=== PATIENT | male | born 1950 | race Caucasian/White ===

== ENCOUNTER 2017-07-22 08:16 | Day surgery (SDC) | payer BC ==
[2017-07-20 14:35] VITALS: BMI 32.8
[~2017-07-22 08:16] MED LIST: LACTATED RINGERS 1,000 ML IV SCH; LIDOCAINE 1% 20 ML VIAL (10MG/ML) FOR IV START INTRADERMA PRN; MIDAZOLAM 2 MG/2 ML VIAL IV PRN; MOXIFLOXACIN HCL 0.5% DROPS 3 ML BTL OP ONE; TETRACAINE 0.5% OPHTH (PF) DROPS 4 ML BTL OP ONE; TIMOLOL 0.5% OPHTH DROPS 5 ML BTL OP ONE
[2017-07-22] MEDS: CYCLOPENTOLATE 1% OPHTH SOLN 2 ML BTL OP ONE ×3 (09:45→10:10)
[2017-07-22] MEDS: PHENYLEPHRINE 2.5% OPHTH DRP 2ML OP NR ×2 (09:48→09:54)
[2017-07-22 10:01] VITALS: TEMP 98.5
[2017-07-22] MEDS ORDERED: hydrALAZINE HCL 20 MG/ML 1 ML VIAL IV ONE (10:33)
[2017-07-22] MEDS ORDERED: METOPROLOL TARTRATE 5 MG/5 ML VIAL IVP ONE (10:55)
[2017-07-22 11:08] VITALS: BP 202/95; PULSE 73; RESP 20
== END 2017-07-22 11:45 | disposition home or self-care (01) ==
LOC: OR 08:16
PROVIDERS: ATTEND Ophthalmology
DX: H25.11 Age-related nuclear cataract, right eye (principal); Z53.09 Procedure and treatment not carried out because of other contraindication

== ENCOUNTER 2017-07-22 11:38 | Emergency (ER) | payer BC, MEDICARE ==
--- NOTE | 2017-07-22 12:25 | ED ---
General Adult HPI - General Chief complaint: Recheck/Abnormal Lab/Rx Stated complaint: HTN Time Seen by Provider: 07/22/17 11:57 Source: patient, family, Caregiver Mode of arrival: ambulatory Limitations: no limitations - History of Present Illness Initial comments: 67-year-old male presenting for evaluation of hypertension. Patient was scheduled for cataract surgery today out of the right eye. In preop prior to surgery he was noted to have significantly elevated blood pressure in the 200s systolic. Patient does not follow with a primary care physician. He is not on any antihypertensive medications. His right eye was dilated with plans for cataract surgery prior to presentation the emergency department. He was given 10 mg of IV hydralazine and 7.5 mg of Lopressor with minimal improvement in his blood pressure. He was transferred to the ER for further evaluation and treatment. Patient denies headache. He denies chest pain or shortness of breath. He denies abdominal pain. Denies any focal neurological complaints including no numbness tingling or weakness. Patient does not have a primary care physician and is not on any medication currently. - Related Data Home Medications Medication Instructions Recorded Confirmed Ascorbic Acid [Vitamin C] 500 mg PO DAILY 07/22/17 07/22/17 Calcium Carbonate/Vitamin D3 1 tab PO DAILY 07/22/17 07/22/17 [Calcium 500-Vit D3 200 Tablet] Cholecalciferol [Vitamin D3] 1,000 unit PO DAILY 07/22/17 07/22/17 Glucosam/Lopez-Msm1/C/Maximino/Bosw 1 tab PO DAILY 07/22/17 07/22/17 [Glucosamine-Chondroitin Tablet] Denver-3 Fatty Acids/Fish Oil [Fish 1 cap PO DAILY 07/22/17 07/22/17 Oil 1,000 mg Softgel] Turmeric Root Extract [Turmeric] 500 mg PO DAILY 07/22/17 07/22/17 Vitamin B Complex 1 cap PO DAILY 07/22/17 07/22/17 Previous Rx's Medication Instructions Recorded amLODIPine BESYLATE [Norvasc] 5 mg PO DAILY #30 tablet 07/22/17 Allergies Allergy/AdvReac Type Severity Reaction Status Date / Time No Known Allergies Allergy Verified 07/22/17 11:53 Review of Systems ROS Statement: Those systems with pertinent positive or pertinent negative responses have been documented in the HPI. ROS Other: All systems not noted in ROS Statement are negative. Past Medical History Past Medical History: Eye Disorder Additional Past Medical History / Comment(s): TYLER CATARACT History of Any Multi-Drug Resistant Organisms: None Reported Past Surgical History: Joint Replacement Additional Past Surgical History / Comment(s): HIP Past Anesthesia/Blood Transfusion Reactions: No Reported Reaction Past Psychological History: No Psychological Hx Reported Smoking Status: Former smoker Past Alcohol Use History: Occasional Past Drug Use History: None Reported - Past Family History Daughter(s) Family Medical History: Cancer Additional Family Medical History / Comment(s): BREAST General Exam Limitations: no limitations General appearance: alert, in no apparent distress Head exam: Present: atraumatic, normocephalic Eye exam: Present: normal appearance, other (Left eye 3 mm and reactive, right eye is 7 mm and sluggish.) ENT exam: Present: normal exam Neck exam: Present: normal inspection. Absent: tenderness, meningismus Respiratory exam: Present: normal lung sounds bilaterally. Absent: respiratory distress, wheezes Cardiovascular Exam: Present: regular rate, normal rhythm GI/Abdominal exam: Present: soft. Absent: distended, tenderness Rectal exam: Present: deferred Extremities exam: Present: normal inspection. Absent: full ROM, tenderness Neurological exam: Present: alert, oriented X3, CN II-XII intact. Absent: motor sensory deficit Psychiatric exam: Present: normal affect, normal mood Skin exam: Present: warm, dry, intact. Absent: cyanosis, diaphoretic Course Vital Signs 07/22/17 07/22/17 11:45 12:05 Temperature 98.2 F Pulse Rate 74 68 Respiratory 18 16 Rate Blood Pressure 215/103 181/81 O2 Sat by Pulse 100 99 Oximetry - Reevaluation(s) Reevaluation #1: 07/22/17 13:38 Patient's blood pressure is down trending, he remains asymptomatic while in the emergency department. Medical Decision Making - Medical Decision Making 67-year-old male presented for asymptomatic hypertension from outpatient surgery center where he was planned for cataract surgery. Patient has no complaints, no headache, no chest pain, no abdominal pain. No focal neurologic findings on exam. Chest x-ray is obtained is negative for focal pneumonia, no wide mediastinum. Laboratory studies are obtained, there is normal CBC, CMP does show mild hyponatremia 146, otherwise negative, troponin is negative. Patient will be started on Norvasc and will obtain a blood pressure cuff, he will trending his blood pressure over the next several days and will follow-up with with a primary care physician. He states he will obtain a primary care physician in [facility] today. - Lab Data Result diagrams: 07/22/17 12:28 07/22/17 12:28 Lab Results 07/22/17 07/22/17 07/22/17 Range/Units 12:28 12:28 12:28 WBC 8.1 (3.8-10.6) k/uL RBC 5.33 (4.30-5.90) m/uL Hgb 14.4 (13.0-17.5) gm/dL Hct 44.2 (39.0-53.0) % MCV 82.9 (80.0-100.0) fL MCH 27.0 (25.0-35.0) pg MCHC 32.5 (31.0-37.0) g/dL RDW 13.9 (11.5-15.5) % Plt Count 289 (150-450) k/uL Neutrophils % 74 % Lymphocytes % 17 % Monocytes % 5 % Eosinophils % 2 % Basophils % 1 % Neutrophils # 6.0 (1.3-7.7) k/uL Lymphocytes # 1.4 (1.0-4.8) k/uL Monocytes # 0.4 (0-1.0) k/uL Eosinophils # 0.2 (0-0.7) k/uL Basophils # 0.0 (0-0.2) k/uL Sodium 146 H (137-145) mmol/L Potassium 4.3 (3.5-5.1) mmol/L Chloride 107 (98-107) mmol/L Carbon Dioxide 25 (22-30) mmol/L Anion Gap 14 mmol/L BUN 17 (9-20) mg/dL Creatinine 0.73 (0.66-1.25) mg/dL Est GFR (CKD-EPI)AfAm >90 (>60 ml/min/1.73 sqM) Est GFR (CKD-EPI)NonAf >90 (>60 ml/min/1.73 sqM) Glucose 96 (74-99) mg/dL Calcium 9.8 (8.4-10.2) mg/dL Magnesium 2.0 (1.6-2.3) mg/dL Total Bilirubin 0.6 (0.2-1.3) mg/dL AST 22 (17-59) U/L ALT 24 (21-72) U/L Alkaline Phosphatase 83 (38-126) U/L Troponin I <0.012 (0.000-0.034) ng/mL Total Protein 7.1 (6.3-8.2) g/dL Albumin 4.4 (3.5-5.0) g/dL Disposition Clinical Impression: Hypertension Disposition: HOME SELF-CARE Condition: Good Instructions: Hypertension (ED), Low Sodium Diet (ED) Additional Instructions: Please obtain primary care physician within the next 1-2 days. Prescriptions: amLODIPine BESYLATE [Norvasc] 5 mg PO DAILY #30 tablet Is patient prescribed a controlled substance at d/c from ED?: No Referrals: None,Stated [Primary Care Provider] - 1-2 days Time of Disposition: 13:40
[2017-07-22 12:42] LABS: Basophils % (A) 1 %; Eosinophils # (A) 0.2 k/uL (0-0.7); Eosinophils % (A) 2 %; HCT 44.2 % (39.0-53.0); HGB 14.4 gm/dL (13.0-17.5); Lymphocytes # (A) 1.4 k/uL (1.0-4.8); Lymphocytes % (A) 17 %; MCHC 32.5 g/dL (31.0-37.0); MCV 82.9 fL (80.0-100.0); Monocytes # (A) 0.4 k/uL (0-1.0); Monocytes % (A) 5 %; Neutrophils % (A) 74 %; Platelet Count 289 k/uL (150-450); RBC 5.33 m/uL (4.30-5.90); RDW 13.9 % (11.5-15.5); WBC 8.1 k/uL (3.8-10.6)
[2017-07-22 12:51] LABS: ALT 24 U/L (21-72); AST 22 U/L (17-59); Albumin 4.4 g/dL (3.5-5.0); Alkaline Phosphatase 83 U/L (38-126); Anion Gap 14 mmol/L; Blood Urea Nitrogen 17 mg/dL (9-20); Calcium 9.8 mg/dL (8.4-10.2); Carbon Dioxide 25 mmol/L (22-30); Chloride 107 mmol/L (98-107); Glucose 96 mg/dL (74-99); Potassium 4.3 mmol/L (3.5-5.1); Sodium 146 mmol/L (137-145); Total Bilirubin 0.6 mg/dL (0.2-1.3); Total Protein 7.1 g/dL (6.3-8.2)
--- NOTE | 2017-07-22 13:08 | XR ---
EXAMINATION TYPE: XR chest 2V DATE OF EXAM: 07/22/2017 COMPARISON: Chest x-ray April 06, 2013. HISTORY: Hypertension with new chest pain. Presurgical study. TECHNIQUE: Frontal and lateral views of the chest are obtained. FINDINGS: There is chronic parenchymal change without new suspicious focal air space opacity, pleura l effusion, or pneumothorax seen. The cardiac silhouette size is within normal limits. Multilevel sp urring in the spine is redemonstrated. IMPRESSION: No suspicious new acute pulmonary process.
[2017-07-22 13:58] VITALS: BP 184/86; PULSE 79; RESP 20; TEMP 98
== END 2017-07-22 13:56 | disposition home or self-care (01) ==
LOC: EC 11:38
DX: I10 Essential (primary) hypertension (principal); Z87.891 Personal history of nicotine dependence; Z79.899 Other long term (current) drug therapy
CPT/HCPCS: 36415; 71046; 80053; 83735; 84484; 85025; 99283

== ENCOUNTER 2017-08-26 07:16 | Day surgery (SDC) | payer BC ==
[2017-08-21 11:16] VITALS: BMI 33.5
[~2017-08-26 07:16] MED LIST changes: -MOXIFLOXACIN HCL 0.5% DROPS 3 ML BTL OP ONE; -TIMOLOL 0.5% OPHTH DROPS 5 ML BTL OP ONE
[2017-08-26] MEDS: CYCLOPENTOLATE 1% OPHTH SOLN 2 ML BTL OP ONE ×3 (07:40→07:54)
[2017-08-26] MEDS: PHENYLEPHRINE 2.5% OPHTH DRP 2ML OP NR ×3 (07:45→08:00)
[2017-08-26 07:48] VITALS: RESP 16; TEMP 98.4
[2017-08-26] MEDS ORDERED: LIDOCAINE 1% (PF) 10MG/ML VIAL SQ ONE ×2 (10:24→10:36)
[2017-08-26] MEDS ORDERED: DUOVISC KIT (GREEN BOX) INTRAOCULA ONE ×2 (10:24→10:36)
[2017-08-26] MEDS ORDERED: BALANCED SALT IRRIG SOLN COMB2 15 ML IRRIG.SOLN IRRIGATION ONE ×2 (10:24→10:36)
[2017-08-26] MEDS: TIMOLOL 0.5% OPHTH DROPS 5 ML BTL OP ONE ×2 (10:25→10:41)
[2017-08-26] MEDS: MOXIFLOXACIN HCL 0.5% DROPS 3 ML BTL OP ONE ×2 (10:25→10:41)
[2017-08-26] MEDS ORDERED: fentaNYL (PF) 50 MCG/ML 2 ML AMP ONE (10:25)
[2017-08-26] MEDS ORDERED: MIDAZOLAM 2 MG/2 ML VIAL ONE (10:25)
[2017-08-26] MEDS ORDERED: EPINEPHrine (PF) 0.3 ML in BALANCED SALT IRRIG SOLN COMB2 500 ML IRRIGATION ONE (10:38)
--- NOTE | 2017-08-26 10:51 | P.OP ---
Date of Procedure: 08/26/17 Preoperative Diagnosis: NS Postoperative Diagnosis: same Procedure(s) Performed: PIOL OD Implants: PCB00 22.50 Anesthesia: MAC Surgeon: Arash Corey Estimated Blood Loss (ml): 0 Pathology: none sent Condition: stable Disposition: same day Indications for Procedure: blurry vision Operative Findings: No complications
[2017-08-26 11:03] VITALS: BP 165/74
[2017-08-26 11:16] VITALS: PULSE 80
--- NOTE | 2017-08-26 19:50 | OP ---
OPERATIVE REPORT DATE OF SURGERY: August 26, 2017. PROCEDURE: Phacoemulsification of cataract and intraocular lens implant of the right eye SURGEON: Arash Corey M.D. SURGICAL APPLIANCES SALESPERSON:: PREOPERATIVE DIAGNOSIS: Nuclear sclerosis. POSTOPERATIVE DIAGNOSIS: Nuclear sclerosis. OPERATION:: Clear cornea phacoemulsification of cataract right OD eye. ESTIMATED BLOOD LOSS:: Zero. SPECIMEN TAKEN:: None. NARRATIVE:: After obtaining the appropriate consent, the patient was brought to the Operating Room where the patient was placed under cardiac monitoring and prepped and draped in the usual sterile manner. At the 11 o'clock position a 15 degree super sharp blade was used to create a paracentesis followed by instillation of 1% Xylocaine MPF 50:50 mix with BSS into the anterior chamber. This was followed by Duovisc to stabilize the anterior chamber. At the 9 o'clock position a self-sealing corneal flap incision was created using 2.8 mm manish keratome. A cystatome was used to initiate a continuous tear capsulorrhexis which was completed with the Utrata forceps. A Binkhorst cannula was used to hydrodissect the lens nucleus followed by hydrodelineation. Phacoemulsification of the lens was performed utilizing phacochop in 20.56 Seconds at 17% power. The remaining cortical material was removed using the irrigation aspiration mode followed by additional 1% Xylocaine MPF into the anterior chamber followed by viscoelastic to stabilize the capsular bag. An KATHY PZB 00 22.5 diopter posterior chamber lens was placed into the capsular bag without difficulty. The remaining viscoelastic material was removed from the anterior chamber with the irrigation/aspiration. Balanced salt solution was used to normalize the intraocular pressure. The incision was checked for watertight integrity. The patient then received two drops of 0.5% timolol followed by two drops Vigamox, was lightly patched and shielded in the usual manner. There were no complications from the procedure. The patient tolerated the procedure well and was returned to recovery in good condition. MMODL / IJN: [id number] /
== END 2017-08-26 11:34 | disposition home or self-care (01) ==
LOC: OR 07:16
PROVIDERS: ATTEND Ophthalmology
DX: H25.13 Age-related nuclear cataract, bilateral (principal); H50.05 Alternating esotropia; Z79.899 Other long term (current) drug therapy; I10 Essential (primary) hypertension; R41.3 Other amnesia; Z87.891 Personal history of nicotine dependence
CPT/HCPCS: 66984; C1780; J2250; J0171; J3010; J2001